=== PATIENT | female | born 1950 ===

== ENCOUNTER 2017-08-03 01:51 | Observation (INO) | payer OTHER ==
[~2017-08-03] VITALS: Ht 160 cm; Wt 63.5 kg
--- NOTE | 2017-08-03 11:47 | Operative Report ---
Operative/Inv Procedure Report Surgery Date: 08/03/17 Name of Procedure: Hemithyroidectomy, isthmusectomy, right With Nims monitor Pre-Operative Diagnosis: Thyroid nodule, right Post-Operative Diagnosis: Same Estimated Blood Loss: less than 50ml Surgeon/Warp Doffer: Milagro Rojas MD Anesthesia: general endotracheal tube Monitors: NIMS monitor Drains: JOSEE 1 Specimens: Thyroid lobe with isthmus, right Microbiology: none Complications: none Condition: Stable on leaving the OR Operative Indication: 3 cm thyroid nodule US FNA genetic testing revealed 60% chance for malignancy [place] III-IV Operative/Procedure Note Note: The patient was brought to the operating room. Patient was placed on the operating room table in supine position. At first timeout was performed including patient's identification and the surgical procedure to be performed. Then general orotracheal anesthesia was induced. NIMS tube was inserted with direct visualization with the glida scope. Electrodes were placed directly over the vocal cords. NIMS tube was secured in place with tape. The grounding electrodes were then inserted into the sternum area and all electrodes were connected to the NIMS monitor. NIMS monitor was set on thyroidectomy mode. Gentle top of the patient's lower neck in para laryngeal and tracheal region yielded a nerve action potential which was visualized on the monitor. Action potential visualized on both sides which confirmed proper positioning of the NIMS tube. Neck was slightly hyperextended. The proposed incision was previously marked in a short-term surgery with patient sitting upright. Surgical table was left in place with head toward anesthesia. Neck was prepped and draped in the routine manner and surgery was performed. A horizontal incision was placed in a skin crease manner over the lower neck as previously marked. The incision was then crosshatched for skin approximation at the end of the surgery. The incision was carried with a 15 blade through the skin and subcutaneous tissue. Platysma was identified and transected next. The superior skin flap was then elevated in subplatysmal manner. Then the inferior skin flap was elevated in subplatysmal manner. Both skin flaps were then retracted by application stay sutures with 2-0 silk. Care was taken to preserve the subplatysmal venous plexus which was quite extensive. Strap muscles were identified in the midline and . Sternal notch, trachea, cricoid ring and larynx were palpated. Dissection was carried in the midline over upper trachea until the thyroid isthmus was identified. Strap muscles on the right were then retracted laterally and attention was paid to the inferior thyroid lobe. All venous and arterial supply was then carefully dissected. It was bipolared, as well as clamped, and tied, as well as ligated and transected with bipolar . The inferior parathyroid gland was not clearly visualized. However, the dissection was carried directly on the thyroid capsule which preserved the inferior parathyroid gland. Next, blunt dissection was used to dissect overlying soft tissue over the anterior surface of the gland. The inferior part of the gland was quite large and had large nodule. It had significant venous plexus all over. Inferior lateral dissection was carried next. Venous supply was dissected away from the gland and the clamped cut and tied. The superior parathyroid gland was identified on the undersurface of the gland. Parathyroid gland was gently elevated and from the thyroid tissue and left intact. Superiorly, dissection was carried from the thyroid isthmus over the anterior superior surface of the gland. The vascular supply was gently dissected and severed by using Harmonic scalpel. Superior vascular pedicle including artery and vein were identified. They were clamped cut and tied. The gland was then gently rotated out of its bed. During this maneuver the thyroid capsule in the region of upper undersurface of the thyroid gland popped open due to significant tension on the gland. Some of the thyroid contents extruded. All the separate thyroid tissue fragments were then collected and included with the specimen. The lobe was then rotated out of the neck and further dissection was carried on the undersurface of the gland. Recurrent laryngeal nerve was never fully identified. Nims nerve stimulator was used to approximately find the position of the nerve however nerve position could not be located and the nerve did not stimulate.. At this point the isthmus was dissected and by using bipolar . The gland was grasped and now the Pope ligament was the only attachment of the thyroid. The ligament was carefully teased out and the and thyroid lobe was removed. Surgical bed was copiously irrigated. Surgeons changed gloves and applied fresh towels around the wound. Additional irrigation was then carried. The wound was carefully inspected for bleeders. There was small amount of bleeding in the region of recurrent laryngeal nerve. Pressure application with surgical sponges was carried for a period of 5 minutes with resultant resolution of the bleeding. Valsalva was applied. There was no air leak and no additional bleeding. Helotene powder was placed into the thyroid bed for hemostasis. One #10 Spanish suction drain was inserted into the wound for drainage exiting on the right side of the wound. Dressing was stitched with 2-0 silk. Closure was then carried at first platysma with 4-0 Vicryl inverting sutures. Then skin was approximated with subcuticular horizontal running stitch with 5-0 Vicryl. Dermabond was applied to the incision followed by Steri-Strips. Pressure dressing was placed with fluffs and wraparound four-inch Himanshu gauze. Patient was then reawakened extubated and taken to the recovery room in good condition. There were no complications. Estimated blood loss was 100 mL. Findings: 3 cm nodule within the lower pole of the thyroid Discharge Disposition: PACU
--- NOTE | 2017-08-03 16:34 | PN- General Surgery ---
Subjective Subjective: Pt. has no complaints. Denies SOB or pain. Objective Vital Signs and I&Os Alert, oriented, looks comfortable. Herat regular Lungs clear Neck with Kerlix dressing over, dry, intact. JOSEE in place with scant/ drops of serosanginous drainage in bulb. Abdomen benign. Extemities without edema. Neurological exam intact without deficits. Assessment/Plan Assessment/Plan s/p Right hemithyroidectomy Stable hemodynamically No horsness or neurological changes. Dressing intact without signs of bleeding. JOSEE output minimal.On abx while drain in place May initiate clear liquids and advance as tolerated Percocet prn On Heparin sc for chemical DVT prophylaxis and ALPS Ambulate Calcium levels as oredred. Core Measures Venous Thromboembolism VTE Risk Factors Surgery No Mechanical VTE Prophylaxis d/t Early Ambulation No VTE Pharm Prophylaxis d/t Other (Prophylaxis ordered)
[2017-08-03 17:26] VITALS: BP 122/70
--- NOTE | 2017-08-03 18:48 | Admission Core Measures ---
Acute Coronary Syndrome (CM) ACS Core Measures Acute Coronary Syndrome Diagnosis No Congestive Heart Failure (NEW) CHF Core Measures Congestive Heart Failure Diagnosis No Cerebrovascular Accident (NEW) CVA Core Measures CVA/TIA Diagnosis No Venous Thromboembolism VTE Core Gracie (View Protocol) VTE Risk Factors Surgery No Mechanical VTE Prophylaxis d/t Early Ambulation No VTE Pharm Prophylaxis d/t Other (Prophylaxis ordered) Problem List As ranked by this Provider includes Assessment & Plan 1. Right thyroid nodule
[2017-08-03 21:48] VITALS: BP 118/70
[2017-08-04 01:44] VITALS: BP 124/66
[2017-08-04 07:26] VITALS: BP 118/76
[2017-08-04 08:07] LABS: ABSOLUTE BASOPHIL COUNT 0 /CUMM (0.0-0.2); ABSOLUTE EOSINOPHIL COUNT 0 /CUMM (0.0-0.7); ABSOLUTE GRANULOCYTE CT 3.2 /CUMM (1.4-6.5); ABSOLUTE LYMPH COUNT 1.5 /CUMM (1.2-3.4); ABSOLUTE MONOCYTE COUNT 0.4 /CUMM (0.10-0.60); BASOPHIL % 0.3 % (0.0-2.0); EOSINOPHIL % 0.4 % (0-5); GRANULOCYTE % 62.5 % (42.2-75.2); HEMATOCRIT 36.8 % (37-47); MEAN CORPUSCULAR HGB 30.2 PG (27.0-31.0); MEAN PLATELET VOLUME 11.4 FL (7.4-10.4); PLATELET COUNT 165 /CUMM (130-400); RBC DISTRIBUTION WIDTH 13.8 % (11.5-14.5); RED BLOOD CELL CT 4.14 /CUMM (4.20-5.40); WHITE BLOOD CELL COUNT 5.1 /CUMM (4.8-10.8)
--- NOTE | 2017-08-04 10:08 | PN- Ear, Nose & Throat ---
Subjective Subjective: No acute overnight events reported. Pain controlled well. No difficulty swallowing. No difficulty breathing. Feels speech is strong. Denies chest pain, shortness of breath and difficulty breathing. Denies nausea and vomitting. No headaches. blurry vision, dizziness. Objective Vital Signs and I&Os Vital Signs Date Time Temp Pulse Resp B/P B/P Pulse O2 O2 Flow FiO2 Mean Ox Delivery Rate 08/04 0726 98.1 66 18 118/76 95 Room Air 08/04 0144 98.1 65 18 124/66 93 Room Air 08/03 2148 98.3 69 18 118/70 94 Room Air 08/03 1726 97.9 68 18 122/70 94 Room Air Intake & Output 08/04 1600 08/04 0800 08/04 0000 08/03 1600 08/03 0800 08/03 0000 Intake Total 240 1400 Output Total 15 608 Balance 225 792 Intake, IV 660 Intake, Oral 240 740 Number 0 Bowel Movements Output, 15 8 Drainage Output, Urine 600 Patient 140 lb Weight Physical Exam: General: Alert and oriented x3, no acute distress Cardiac: RRR, s1s2 Pulm: CTA bilaterally, non-labored respiratory effort HEENT: Voice clear, swallow intact, Dressing intact, no swelling, evie holding suction, serosanguinous drainage. Extremities: Moves all extremities, distal sensation intact, skin warm and well perfused, bilateral calves soft and non-tender. Assessment/Plan Assessment/Plan This is a 66 year old female, POD 1, s/p R hemithyroidectomy -Keep EVIE today -Discharge to home, follow up with Dr. Rojas in office tomorrow am for drain removal -Continue to keep dressing in place -DC iv fluids now -Can continue diet as tolerated, clears for now per patient request Per patient, pain meds and abx have been rx'd by MD office, pt has filled scripts and has meds at home Plan of care discussed with Dr. Rojas Core Measures Venous Thromboembolism VTE Risk Factors Surgery No Mechanical VTE Prophylaxis d/t Early Ambulation No VTE Pharm Prophylaxis d/t Other (Prophylaxis ordered)
--- NOTE | 2017-08-04 10:15 | Patient Discharge Instructions ---
Discharge Instructions General Discharge Information You were seen/treated for: Thyroid nodule, right side You had these procedures: Right hemithyroidectomy Watch for these problems: Increasing pain despite the use of pain medication. Increasing swelling Drainage from incision Inability to speak or swallow Difficulty breathing Persistent nausea and vomitting Fever greater than 100.6 Call Surgeon to remove: Other (drain) Do not soak the wound: Yes Other wound care: Keep wound clean and dry Keep dressing in place until you are evaluated by Dr. Rojas Special Instructions: Keep drain to suction as it is. If you find that the drain has moved or if you have any questions regarding its function, please contact Dr. Rojas's office. Diet Continue normal diet: Yes Recommended Diet: Regular Additional DIET Information: Advance diet consistency as tolerated Activity Full Activity/No Limits: No Activity Self Limited: Yes Pounds, do NOT lift more than: 5 Acute Coronary Syndrome Inclusion Criteria At DC or during hospital stay patient has or had the following: ACS DIAGNOSIS No Discharge Core Measures Meds if any: Prescribed or Continued at Discharge Meds if any: NOT Prescribed or Continued at Discharge Congestive Heart Failure Inclusion Criteria At DC or during hospital stay patient has or had the following: CHF DIAGNOSIS No Discharge Core Measures Meds if any: Prescribed or Continued at Discharge Meds if any: NOT Prescribed or Continued at Discharge Cerebrovascular accident Inclusion Criteria At DC or during hospital stay patient has or had the following: CVA/TIA Diagnosis No Discharge Core Measures Meds if any: Prescribed or Continued at Discharge Meds if any: NOT Prescribed or Continued at Discharge Venous thromboembolism Inclusion Criteria VTE Diagnosis No VTE Type NONE VTE Confirmed by (Test) NONE Discharge Core Measures - Per Current guidelines, there needs to be overlap - treatment for the first 5 days of Warfarin therapy. - If discharged on Warfarin prior to 5 days of - overlap therapy, the patient will need to be - assessed for post discharge needs including - *Post discharge parental anticoagulation - *Warfarin and/or parental anticoagulation education - *Follow up date to check INR post discharge At least 5 days overlap therapy as Inpatient No Meds if any: Prescribed or Continued at Discharge Note: Overlap Therapy is Warfarin and Anticoagulant Meds if any: NOT Prescribed or Continued at Discharge
--- NOTE | 2017-08-04 10:21 | Surgical Discharge Summary ---
Visit Information Visit Dates Admission Date: 08/03/17 History of Present Illness Chief Complaint: Right thyroid nodule Medical History Blood Transfusion Hx: No Musculoskeletal: [employer]/Reproductive: uterine/bladder prolapse, HYSTERECTOMY History of MRSA: No History of VRE: No History of CDIFF: No Isolation History: Standard Surgical History Pertinent Surgical History: none (S), non-contributory Psychosocial History What is Your Primary Language? Kazakh Review of Systems: See H&P Hospital Course Course Attending Physician: Milagro Rojas MD Primary Care Physician: Ana HAZEL,[facility] Course: Laina was placed in observation status post operatively for pain management, airway assessment and iv hydration following a right side hemithyroidectomy. She tolerated the procedure well and was transferred to a general surgical floor. Her diet was advanecd to clear liquids which was well toelrated. Her drain held suction overnight. No swelling resulted and there was no difficulty speaking, breathing or swallowing. Her post operative labwork was within normal limits. Her neurovascular status remained intact and her vital signs were stable and within normal limits. She was deemed appropriate for discharge to home with JOSEE drain in place and she was instructed to follow up with Dr. Rojas on Post op day 2 for drain assessment. Allergies: Coded Allergies: No Known Allergies (08/01/17) Disposition Summary Disposition Principal Diagnosis: Thyroid nodule, right Additional Diagnosis: None Discharge Disposition: home or self care Discharge Instructions General Discharge Information Code Status: Full Code Patient's Diet: Regular, advance consistency as tolerated Patient's Activity: As tolerated Follow-Up Instructions/Appts: Follow up with Dr. Rojas tomorrow, post op day 2.
== END 2017-08-04 10:55 ==
LOC: STS 01:51 → PACUH 09:26 → ENRESERV 13:13 → ENTRNSPT 14:18 → EDTRNSPTSTS 14:23 → 2NB 14:38 → CMPTRNSPT 14:50 → ENPENDDIS 08-04 10:52 → 2NB 08-04 10:55
PROVIDERS: Physician Assistant Surgical
DX: D34 Benign neoplasm of thyroid gland (principal); E06.5 Other chronic thyroiditis
CPT/HCPCS: 6040; 36592; 82436; 96372; 96374; 96376; C9399; G0378; J0690; J1644; J7042